=== PATIENT | male | born 1990 | race African-American/Black ===

== ENCOUNTER 2020-07-08 05:50 | Emergency (ER) | payer OTHER ==
[2020-07-08] MEDS ORDERED: Albuterol/Ipratropium 3.0-0.5 MG/3 ML Neb Soln NEB ONE (05:59)
[2020-07-08] MEDS ORDERED: predniSONE 20 MG Tab PO ONE (06:23)
--- NOTE | 2020-07-08 06:47 | EDM.PDOC ---
ED HPI GENERAL MEDICAL PROBLEM - General Chief Complaint: Asthma Stated Complaint: Shortness of breath, asthma Time Seen by Provider: 07/08/20 05:55 Source of Information: Reports: Patient, RN History Limitations: Reports: No Limitations - History of Present Illness INITIAL COMMENTS - FREE TEXT/NARRATIVE: Pt. presents to ER with complaints of trouble breathing since playing basketball last evening. Pt. has a known history of asthma and is out of all of his meds, including rescue inhaler. He states that he has been in advair in the past, but is out of this. He states that he hasn't used his albuterol inhaler in over a year. Pt. denies any fever or chills. No cough. Denies any congestion. No nausea, vomiting, diarrhea. Pt. denies any sore throat, abdominal pain, or chest pain. Pt. states that his asthma was more severe in his youth. He states that he was hospitalized once as a child. Onset Date: 07/07/20 Location: Reports: Chest, Generalized - Related Data Allergies Allergy/AdvReac Type Severity Reaction Status Date / Time No Known Allergies Allergy Verified 07/08/20 05:59 Home Meds: Home Meds Albuterol [Ventolin HFA] 2 puff INH Q4HR PRN 07/08/20 [History] Past Medical History Respiratory History: Reports: Asthma Social & Family History - Tobacco Use Tobacco Use Status *Q: Unknown Ever Used Tobacco ED ROS GENERAL - Review of Systems Review Of Systems: See Below Constitutional: Reports: No Symptoms. Denies: Fever, Chills, Malaise, Weakness, Fatigue, Night Sweats, Diaphoresis HEENT: Reports: No Symptoms Respiratory: Reports: Shortness of Breath, Wheezing Cardiovascular: Reports: No Symptoms Endocrine: Reports: No Symptoms GI/Abdominal: Reports: No Symptoms : Reports: No Symptoms Musculoskeletal: Reports: No Symptoms Skin: Reports: No Symptoms Neurological: Reports: No Symptoms Psychiatric: Reports: No Symptoms Hematologic/Lymphatic: Reports: No Symptoms Immunologic: Reports: No Symptoms ED EXAM, GENERAL - Physical Exam Exam: See Below Exam Limited By: No Limitations General Appearance: Alert, WD/WN, No Apparent Distress Eye Exam: Bilateral Eye: EOMI, PERRL Throat/Mouth: Normal Lips, Normal Teeth, Normal Oropharynx, No Airway Compromise Neck: Normal Inspection, Supple, Non-Tender, Full Range of Motion Respiratory/Chest: No Respiratory Distress, Lungs Clear, Normal Breath Sounds, No Accessory Muscle Use, Chest Non-Tender Cardiovascular: Normal Peripheral Pulses, Regular Rate, Rhythm, No Edema, No Gallop, No JVD, No Murmur, No Rub GI/Abdominal: Soft, Non-Tender, No Organomegaly, No Distention, No Mass (Male) Exam: Deferred Rectal (Males) Exam: Deferred Back Exam: Normal Inspection, Full Range of Motion Extremities: Normal Inspection, Normal Range of Motion, Non-Tender, No Pedal Edema, Normal Capillary Refill Neurological: Alert, Oriented, CN II-XII Intact, Normal Cognition, Normal Reflexes, No Motor/Sensory Deficits Psychiatric: Normal Affect, Normal Mood Skin Exam: Warm, Dry, Intact, Normal Color, No Rash Lymphatic: No Adenopathy Course - Vital Signs Last Recorded V/S: Last Vital Signs Temp 36.9 C 07/08/20 05:50 Pulse 83 07/08/20 05:50 Resp 16 07/08/20 05:50 BP 145/75 H 07/08/20 05:50 Pulse Ox 97 07/08/20 05:50 - Orders/Labs/Meds Orders: Active Orders 24 hr Category Date Time Status RT Aerosol Therapy [RC] ASDIRECTED Care 07/08/20 05:59 Active Meds: Medications Discontinued Medications Generic Name Dose Route Start Last Admin Trade Name Vickq PRN Reason Stop Dose Admin Albuterol/Ipratropium 3 ml 07/08/20 05:59 07/08/20 06:03 Duoneb 3.0-0.5 Mg/3 Ml NEB 07/08/20 06:00 3 ml ONETIME ONE Administration Prednisone 40 mg 07/08/20 06:23 07/08/20 06:29 Prednisone PO 07/08/20 06:24 40 mg ONETIME ONE Administration Departure - Departure Time of Disposition: 06:50 Disposition: Home, Self-Care 01 Clinical Impression: Asthma exacerbation - Discharge Information Instructions: Albuterol inhalation aerosol, Asthma, Adult, [id number] Forms: ED Department Discharge Additional Instructions: Albuterol inhaler 2 puffs every 4-6 hours as needed for trouble breathing Prednisone 20mg 1 twice daily for 5 days Follow-up in clinic in 5-7 days to make sure this is getting better, or if you develop fever, chills. Return to ER if you develop worsening shortness of breath. Sepsis Event Note (ED) - Evaluation Sepsis Screening Result: No Definite Risk - Focused Exam Vital Signs: Vital Signs Temp Pulse Resp BP Pulse Ox 07/08/20 05:50 36.9 C 83 16 145/75 H 97 - My Orders Last 24 Hours: My Active Orders 07/08/20 05:59 RT Aerosol Therapy [RC] ASDIRECTED - Assessment/Plan Last 24 Hours: My Active Orders 07/08/20 05:59 RT Aerosol Therapy [RC] ASDIRECTED Plan: Albuterol inhaler 2 puffs every 4-6 hours as needed for trouble breathing Prednisone 20mg 1 twice daily for 5 days Follow-up in clinic in 5-7 days to make sure this is getting better, or if you develop fever, chills. Return to ER if you develop worsening shortness of breath.
== END 2020-07-08 06:40 | disposition home or self-care (01) ==
LOC: VM.ED 05:50
DX: J45.901 Unspecified asthma with (acute) exacerbation (principal)
CPT/HCPCS: 94640; 99283; 99284-25; J7512; J7620-GY

== ENCOUNTER 2022-06-16 19:19 | Emergency (ER) | payer OTHER ==
[2022-06-16] MEDS ORDERED: Albuterol/Ipratropium 3.0-0.5 MG/3 ML Neb Soln NEB ONE (19:53)
[2022-06-16 20:05] LABS: CHLORIDE,CL 104 mmol/L (98-107); SODIUM,NA 139 mmol/L (136-145)
[2022-06-16 20:31] LABS: ESTIMATED GFR 101 mL/min (>=60)
[2022-06-16] MEDS ORDERED: Take Home: Cyclobenzaprine 10 MG Tab, 4 Tab Pack PO ONE (20:44)
[2022-06-16] MEDS ORDERED: Take Home: Acetaminophen/HYDROcodone 325-5 MG, 5 Tab Pack PO ONE (20:44)
== END 2022-06-16 21:02 | disposition home or self-care (01) ==
LOC: VM.ED 19:19
DX: M43.6 Torticollis (principal)
CPT/HCPCS: 36415; 80053; 83735; 84100; 85025; 86140; 93005; 99283; A9270; J7620-GY

== ENCOUNTER 2024-09-18 22:03 | Emergency (ER) | payer BC, OTHER ==
[2024-09-18] MEDS: Ketorolac 30 MG/ML SDV IM ONE (22:32)
== END 2024-09-19 00:10 | disposition home or self-care (01) ==
LOC: VM.ED 22:03
DX: S14.3XXA Injury of brachial plexus, initial encounter (principal); J45.909 Unspecified asthma, uncomplicated; Z79.51 Long term (current) use of inhaled steroids; W01.198A Fall on same level from slipping, tripping and stumbling with subsequent striking against other object, initial encounter; Y93.67 Activity, basketball
CPT/HCPCS: 73060-RT; 73090-RT; 73130-RT; 96372; 99283; J1885

== ENCOUNTER 2024-10-28 22:27 | Emergency (ER) | payer OTHER ==
[2024-10-28] MEDS: Diphtheria,Pertussis(Acell),Tetanus Vaccine 0.5 ML Syringe IM ONE (22:58)
[2024-10-28] MEDS: Lidocaine 1% 10 ML MDV INJECT ONE (22:59)
[2024-10-28] MEDS: Bupivacaine 0.5% 30 ML SDV INJECT PRN (22:59)
== END 2024-10-28 23:45 | disposition home or self-care (01) ==
LOC: VM.ED 22:27
DX: S61.012A Laceration without foreign body of left thumb without damage to nail, initial encounter (principal); Z23 Encounter for immunization; W26.8XXA Contact with other sharp object(s), not elsewhere classified, initial encounter
CPT/HCPCS: 12002; 90471; 90715; 99282; 99283; J0665; J2003